=== PATIENT | female | born 1990 | race Caucasian/White ===

== ENCOUNTER 2018-04-15 19:23 | Emergency (ER) | payer OTHER ==
[~2018-04-15] VITALS: Ht 172.7 cm; Wt 49.9 kg
== END 2018-04-15 20:54 | disposition home or self-care (01) ==
LOC: ER 19:23
DX: S29.012A Strain of muscle and tendon of back wall of thorax, initial encounter (principal); W22.8XXA Striking against or struck by other objects, initial encounter; Y93.89 Activity, other specified; Y92.69 Other specified industrial and construction area as the place of occurrence of the external cause; Y99.8 Other external cause status

== ENCOUNTER 2018-05-26 10:44 | Emergency (ER) | payer OTHER ==
[~2018-05-26] VITALS: Ht 172.7 cm; Wt 50.8 kg
== END 2018-05-26 13:05 | disposition home or self-care (01) ==
LOC: ER 10:44
DX: N39.0 Urinary tract infection, site not specified (principal)

== ENCOUNTER 2019-05-02 14:36 | Emergency (ER) | payer OTHER ==
[~2019-05-02] VITALS: Ht 172.7 cm; Wt 53.5 kg
== END 2019-05-02 17:18 | disposition home or self-care (01) ==
LOC: ER 14:36
DX: R21 Rash and other nonspecific skin eruption (principal)